=== PATIENT | female | born 1980 | race Caucasian/White ===

== ENCOUNTER 2017-08-23 18:16 | Emergency (ER) | payer MEDICAID, OTHER ==
[2017-08-23] MEDS: IBUPROFEN 800 MG TAB PO (20:59)
== END 2017-08-23 22:11 | disposition home or self-care (01) ==
LOC: FTE 18:16
DX: T16.1XXA Foreign body in right ear, initial encounter (principal); X58.XXXA Exposure to other specified factors, initial encounter; Y92.9 Unspecified place or not applicable
CPT/HCPCS: 69200; 99283-25